=== PATIENT | female | born 1945 | race Caucasian/White ===

== ENCOUNTER 2020-06-28 16:42 | Observation (INO) | payer MEDICARE ==
[~2020-06-28] VITALS: Ht 165.1 cm; Wt 85.4 kg
--- NOTE | 2020-06-28 17:22 | NUR ---
PT AMBULATORY TO ROOM 15 W/ C/O L HIP PAINS ATRTED 2 WEEKS AGO. PT STATES "IT STARTED OUT OF NOWHERE JUST ALL OF A SUDDEN". PT STATES SHE HAD A HIP REPLACEMENT IN 2013 AND SAW 2 ORTHOPEDIC SURGEONS WHO STATED THEY THOUGHT SHE HAD A HIP INFECTION AND TO COME TO ED IMMEDIATELY. PT DENIES FEVERS/CHILLS. SKIN WNL. PT RESTING ON GURNEY. NADN. MONITORS APPLIED. VSS. WARM BLANKET PROVIDED.
[2020-06-28 17:30] LABS: BASOPHILS # (AUTO) 0.04 x10^3/uL (0-0.1); BASOPHILS % (AUTO) 1 % (0-1); EOSINOPHILS # (AUTO) 0.15 x10^3/uL (0-0.4); EOSINOPHILS % (AUTO) 2 % (1-7); HCT (SEDRATE) 43.8 % (34.6-47.8); LYMPHOCYTES # (AUTO) 2.69 x10^3/uL (1-3.4); LYMPHOCYTES % (AUTO) 33 % (22-44); MD NO; MEAN CORPUSCULAR HEMOGLOBIN 30.1 pg (27.0-34.8); MEAN CORPUSCULAR HGB CONC 32.7 g/dL (32.4-35.8); MEAN PLATELET VOLUME 9.3 fL (7.4-10.4); MONOCYTES # (AUTO) 0.69 x10^3/uL (0.2-0.8); MONOCYTES % (AUTO) 8 % (2-9); NEUTROPHILS # (AUTO) 4.65 x10^3/uL (1.8-6.8); NEUTROPHILS % (AUTO) 57 % (42-75); PLATELET COUNT 227 x10^3/uL (130-400); RED BLOOD COUNT 4.78 x10^6/uL (3.82-5.3); RED CELL DISTRIBUTION WIDTH 14.1 % (9.6-15.2)
[2020-06-28] MEDS ORDERED: SODIUM BICARBONATE 4.2%, 5ML ONE (17:33)
[2020-06-28] MEDS ORDERED: LIDOCAINE 1%, 10ML ONE ×2 (17:33)
[2020-06-28 17:41] LABS: ANION GAP 5 mmol/L (5-15); CALCIUM 9.1 mg/dL (8.5-10.1); CHLORIDE 114 mmol/L (98-107)
[2020-06-28 17:42] LABS: C-REACTIVE PROTEIN, QUANT 0.47 mg/dL (0.02-0.49); CREATININE 0.67 mg/dL (0.55-1.02)
--- NOTE | 2020-06-28 17:49 | NUR ---
PT TO IR IN STABLE CONDITION.
[2020-06-28] MEDS ORDERED: OMNIPAQUE 300 MG/ML, 10ML VIAL ONE (18:41)
--- NOTE | 2020-06-28 18:42 | NUR ---
PT RESTING ON GURNEY. NADN. YOUNG.
--- NOTE | 2020-06-28 18:54 | NUR ---
PT CHART REVIEWED AND PLACED FOR RECHECK.
--- NOTE | 2020-06-28 18:58 | NUR ---
REPORT GIVEN TO KAILA MURILLO RN.
[2020-06-28] MEDS ORDERED: morphine SULFATE 10 MG/ML, 1ML IVPush PRN (20:30)
[2020-06-28] MEDS ORDERED: ACETAMINOPHEN 325 MG TABLET PO PRN (20:30)
[2020-06-28] MEDS ORDERED: DOCUSATE 100 MG CAPSULE PO PRN (20:30)
[2020-06-28] MEDS ORDERED: LABETALOL 5MG/ML, 20ML IVPush PRN (20:30)
[2020-06-28] MEDS ORDERED: ENALAPRILAT 1.25 MG/ML, 2ML IVPush PRN (20:30)
--- NOTE | 2020-06-28 21:11 | NUR ---
Pt states she does not know her home medications at this time. Her home pharmacy updated to obtain home med list tomorrow
--- NOTE | 2020-06-28 21:31 | NUR ---
report called to emma cardenas to assume care upon transfer to [facility]
[2020-06-28 22:15] VITALS: BP 144/74
[2020-06-29 00:50] VITALS: BP 155/77
[2020-06-29 05:59] LABS: BASOPHILS # (AUTO) 0.04 x10^3/uL (0-0.1); BASOPHILS % (AUTO) 1 % (0-1); EOSINOPHILS # (AUTO) 0.16 x10^3/uL (0-0.4); EOSINOPHILS % (AUTO) 2 % (1-7); LYMPHOCYTES % (AUTO) 31 % (22-44); MD NO; MEAN CORPUSCULAR HEMOGLOBIN 29.6 pg (27.0-34.8); MEAN PLATELET VOLUME 9.1 fL (7.4-10.4); MONOCYTES # (AUTO) 0.66 x10^3/uL (0.2-0.8); MONOCYTES % (AUTO) 8 % (2-9); NEUTROPHILS # (AUTO) 4.53 x10^3/uL (1.8-6.8); NEUTROPHILS % (AUTO) 58 % (42-75); PLATELET COUNT 210 x10^3/uL (130-400); RED BLOOD COUNT 4.64 x10^6/uL (3.82-5.3); RED CELL DISTRIBUTION WIDTH 13.8 % (9.6-15.2)
[2020-06-29 06:38] LABS: ANION GAP 8 mmol/L (5-15); CALCIUM 9.3 mg/dL (8.5-10.1); CHLORIDE 114 mmol/L (98-107)
[2020-06-29 06:47] VITALS: BP 134/99
[2020-06-29 12:57] VITALS: BP 150/80
[2020-06-29] MEDS: HEPARIN 5,000 UNITS/ML, 1ML SQ SCH ×2 (15:22→22:41)
[2020-06-29] MEDS ORDERED: GADOTERATE 10 MMOL/20 ML SYR ONE (16:06)
[2020-06-29 19:13] VITALS: BP 144/76
[2020-06-30 01:24] VITALS: BP 147/77
[2020-06-30] MEDS: HEPARIN 5,000 UNITS/ML, 1ML SQ SCH (08:08)
[2020-06-30 08:10] VITALS: BP 156/89
== END 2020-06-30 13:12 | disposition home or self-care (01) ==
LOC: ED 19:49 → INTOOBSV 20:15 → EDIP 20:15 → 3N 21:50 → DCLOUNGE 06-30 12:52
PROVIDERS: ADMIT Family Medicine; ATTEND Internal Medicine
DX: M25.552 Pain in left hip (principal); M48.061 Spinal stenosis, lumbar region without neurogenic claudication; I10 Essential (primary) hypertension; R53.1 Weakness; R53.81 Other malaise; Z79.899 Other long term (current) drug therapy; Z96.642 Presence of left artificial hip joint
CPT/HCPCS: 20610; 36415; 72158; 77002; 80048; 85025; 85651; 86140; 87070; 87205; 93971; 96372; 97163; 97165; 99285; A9575; G0378; J1644; J3490; Q9967